=== PATIENT | male | born 1940 | race Caucasian/White ===

== ENCOUNTER 2022-04-05 12:07 | Emergency (ER) | payer MEDICARE ==
[2022-04-05 13:47] LABS: #Eosinphils 0.1 10x3/uL (0.0-0.5); #Monocytes 0.9 10x3/uL (0.0-1.1); #Neutrophils 3.6 10x3/uL (1.5-8.4); %Basophils 0.4 % (0.0-2.0); %Lymphocytes 35.8 % (18.0-47.0); %Neutrophils 50.7 % (40.0-75.0); Hemoglobin 15.4 g/dL (13.5-17.5); Mean Corpuscular HGB CONC 34.5 g/dL (32.0-36.0); Mean Corpuscular Hemoglobin 34.5 pg (27.0-33.0); Mean Corpuscular Volume 100.2 fl (81.2-95.1); Mean Platelet Volume 9.6 fl (7.4-10.4); Platelet Count 131 10x3/uL (150-450); RBC Distribution Width 14.1 % (11.5-14.5); Red Blood Cell (RBC) Count 4.46 10x6/uL (4.32-5.72); White Blood Cell (WBC) Count 7.1 10x3/uL (3.5-10.5)
[2022-04-05 14:57] LABS: ALT (SGPT) 34 U/L (8-55); AST (SGOT) 31 U/L (5-34); Alkaline Phosphatase 82 U/L (40-110); Anion Gap 13 mmol/L (10-20); BUN (Urea Nitrogen) 21 mg/dL (8.4-25.7); Bilirubin, Total 1.2 mg/dL (0.2-1.2); Calc. Creatinine Clearance 0 mL/min (70-130); Calcium 9.7 mg/dL (7.8-10.44); Carbon Dioxide 23 mmol/L (23-31); Chloride 109 mmol/L (98-107); Estimated GFR 33; Globulin 2.7 g/dL (2.4-3.5); Glucose 78 mg/dL (83-110); Lipase 19 U/L (8-78); Potassium 4.7 mmol/L (3.5-5.1); Protein, Total 6.7 g/dL (5.8-8.1); Sodium 140 mmol/L (136-145)
== END 2022-04-05 14:15 | disposition left against medical advice (07) ==
LOC: CSHERS 12:07
DX: Z53.21 Procedure and treatment not carried out due to patient leaving prior to being seen by health care provider (principal)
CPT/HCPCS: 71045; 80053; 83690; 84484; 85025; 93005

== ENCOUNTER 2023-01-09 14:08 | Outpatient (CLI) | payer MEDICARE, BC | END 2023-01-09 14:09 | disposition home or self-care (01) | LOC: CSHRAD 14:08 | PROVIDERS: ATTEND Surgery | DX: Z01.818 Encounter for other preprocedural examination (principal); Z95.0 Presence of cardiac pacemaker | CPT/HCPCS: 71046 ==

== ENCOUNTER 2023-01-10 09:17 | Outpatient (CLI) | payer MEDICARE, BC | END 2023-01-10 09:18 | disposition home or self-care (01) | LOC: CSHSPEC 09:17 | PROVIDERS: ATTEND Surgery | DX: G93.9 Disorder of brain, unspecified (principal); I61.1 Nontraumatic intracerebral hemorrhage in hemisphere, cortical | CPT/HCPCS: 70553; 82565 ==

== ENCOUNTER 2023-01-31 07:14 | Outpatient (CLI) | payer OTHER | END 2023-01-31 07:15 | disposition home or self-care (01) | LOC: CSHCT 07:14 | PROVIDERS: ATTEND Neurological Surgery | DX: I61.9 Nontraumatic intracerebral hemorrhage, unspecified (principal); Z53.9 Procedure and treatment not carried out, unspecified reason | CPT/HCPCS: 82565 ==

== ENCOUNTER 2023-02-20 08:28 | Outpatient (CLI) | payer MEDICARE, BC | END 2023-02-20 08:29 | disposition home or self-care (01) | LOC: CSHRAD 08:28 | PROVIDERS: ATTEND Surgery | DX: Z01.818 Encounter for other preprocedural examination (principal); Z95.0 Presence of cardiac pacemaker | CPT/HCPCS: 71046 ==

== ENCOUNTER 2023-02-21 12:14 | Outpatient (CLI) | payer OTHER | END 2023-02-21 12:15 | disposition home or self-care (01) | LOC: CSHSPEC 12:14 | PROVIDERS: ATTEND Neurological Surgery | DX: I61.9 Nontraumatic intracerebral hemorrhage, unspecified (principal) | CPT/HCPCS: 70544; 70547 ==

== ENCOUNTER 2024-01-09 08:51 | Outpatient (CLI) | payer MEDICARE, BC | END 2024-01-09 08:52 | disposition home or self-care (01) | LOC: CSHMRI 08:51 | PROVIDERS: ATTEND Family Medicine | DX: Z01.818 Encounter for other preprocedural examination (principal); G50.0 Trigeminal neuralgia; H57.11 Ocular pain, right eye; Z95.810 Presence of automatic (implantable) cardiac defibrillator; Z95.818 Presence of other cardiac implants and grafts; G50.8 Other disorders of trigeminal nerve | CPT/HCPCS: 70551; 71045 ==